=== PATIENT | male | born 1985 | race Caucasian/White ===

== ENCOUNTER 2023-02-07 07:41 | Outpatient (CLI) | payer OTHER, SELFPAY ==
--- NOTE | 2023-02-07 08:00 | CRLHL7_ITS ---
For Patients: As a result of the Century Cures Act, medical imaging exams and procedure reports are released immediately into your electronic medical record. You may view this report before your referring provider. If you have questions, please contact your health care provider. INDICATION: Anal rectal pain for 2 months. Palpable bulge. TECHNIQUE: CT of the abdomen and pelvis. 150 cc nonionic Isovue-370 administered. COMPARISON: None. FINDINGS: Clear included lung bases. Diffuse hepatic fatty infiltration. No intrahepatic mass. No biliary ductal dilatation. The spleen, pancreas, gallbladder, and both adrenal glands are normal. Decompressed stomach and duodenum but otherwise unremarkable. Normal-appearing kidneys without solid masses or obstruction. No definite renal stones. Normal caliber abdominal aorta and iliac arteries. Normal inferior vena cava. There is no evidence for bowel obstruction or ileus. There is no evidence for appendicitis or diverticulitis. No ascites or lymphadenopathy. Urinary bladder, prostate gland, and seminal vesicles are normal. The rectum, anus, and perineum are within normal limits. No abscess or fluid collection. No acute inflammatory process. No inguinal hernias. Normal included skeleton. IMPRESSION: 1. No acute abdominopelvic process identified. 2. No abscess. No perirectal fat stranding or fluid collection. 3. Hepatic fatty infiltration. Please note that all CT scans at this facility use dose modulation, iterative reconstruction, and/or weight-based dosing when appropriate to reduce radiation dose to as low as reasonably achievable. Dictated by Danny Blake MD @ 02/07/2023 10:08:39 AM (Electronically Signed)
== END 2023-02-07 07:42 | disposition home or self-care (01) ==
LOC: CT 07:42
PROVIDERS: PCP Family Medicine; Visit Provider Family Medicine
DX: K62.89 Other specified diseases of anus and rectum (principal); K76.0 Fatty (change of) liver, not elsewhere classified
CPT/HCPCS: 74177; Q9967

== ENCOUNTER 2024-03-04 09:17 | Outpatient (CLI) | payer BC, SELFPAY ==
--- OUTSIDE RECORDS SUMMARY | 2024-03-04 09:20 | XMS_ITS | Clinical Summary ---
Author Name Unknown Organization [employer] [facility] Address [place], [place] [address] Care Team Providers Care Psychology Intern Name Role Phone Pcp, No Primary Care Provider Unavailabl e Allergies Active Allergy Reactions Criticality Noted Date Comments Amoxicillin *Unknown - Childhood Rxn Unknown 06/10/2012 Cefaclor *Unknown - Childhood Rxn Unknown 06/10/2012 Penicillins *Unknown - Childhood Rxn Unknown 06/10/2012 Medications Medication Sig Dispensed Refills Start Date End Date Status gabapentin (NEURONTIN) 300 mg capsule 1-2 tablets qhs. 30 capsule 0 12/31/2012 Active Active Problems Problem Noted Date Diagnosed Date Numbness and tingling in right hand 12/31/2012 Tear of lateral cartilage or meniscus of knee, c urrent 06/10/2012 Family History Medical History Relation Name Comments Hypertension Father Cancer Mother Diabetes Mother Hypertension Mother Relation Name Status Comments Father Mother Social History Tobacco Use Types Packs/Day Years Used Date Smoking Tobacco: Never Alcohol Use Standard Drinks/Week Comments Yes 0 (1 standard drink = 0.6 oz pur e alcohol) Sex and Gender Information Value Date Recorded Sex Assigned at Not on file Gender Identity Not on file Sexual Orientation Not on file Obstetrics History Plan of Treatment Health Maintenance Due Date Last Done Comments Tdap 1997 Depression screening for age 12+ 1998 HIV for age 15-65 2001 BMI (ht and wt on same day) for age 18+ 02/07/2004 Hepatitis C screening for ag e 18-79 02/07/2004 Tetanus booster 2006 Lipids for age 35-44 2021 COVID-19 vaccine series (2022- season) 2023 Influenza for age 9-49 06/15/2024 Pneumococcal series for age 6-64 Aged Out No longer eligible based on patient's age to complete this topic Care Teams Psychology Intern Relationship Specialty Start Date End Date Pcp, No . PCP - General 06/06/12
--- OUTSIDE RECORDS SUMMARY | 2024-03-04 09:20 | XMS_ITS | Clinical Summary ---
Author Name Unknown Organization [facility] Address [address] [place] [address]. [place] [address] Care Team Providers Care Peanut Shaker Name Role Phone Hector Newman MD Primary Care Provider + Allergies Active Allergy Reactions Criticality Noted Date Comments Amoxicillin 09/15/2015 Cefaclor 09/15/2015 Penicillins 09/15/2015 Medications Medication Sig Dispensed Refills Start Date End Date Status lisinopril (PRINIVIL,ZESTRIL) 40 MG tabletIndications:Rio ign essential hypertension Take 1 tablet (40 mg) by mouth daily 90 tablet 1 05/02/2016 Active albuterol (PROAIR HFA, PROVENTIL HFA, VENTOLIN HFA) 108 (90 BASE) MCG/ACT inhalerIndications:Ac yamel bronchitis, unspecified organism Inhale 2 puffs into the lungs every 6 hours as needed for shortness of breath / dyspnea or wheezing 1 Inhaler 1 07/17/2016 Active ciprofloxacin (CIPRO) 500 MG tablet Take 500 mg by mouth 2 times daily Active oxyCODONE (ROXICODONE) 5 MG tabletIndications:Sergio fistula Take 1 tablet (5 mg) by mouth every 4 hours as needed for moderate to severe pain 6 tablet 02/10/2023 Active Active Problems Problem Noted Date Diagnosed Date Elevated fasting glucose 09/29/2015 Hypertriglyceridemia 09/29/2015 Benign essential hypertension 09/29/2015 CARDIOVASCULAR SCREENING; LDL GOAL LESS THAN 130 09/27/2015 Morbid obesity 09/15/2015 Episodic tension-type headache, not intractable 09/15/2015 Immunizations Name Administration Dates Next Due Influenza Vaccine >6 months,quad, PF 07/15/2015 TDAP (Adacel,Boostrix) 07/15/2013 Family History Medical History Relation Comments Coronary Artery Disease Father s/p cabg Hypertension Father Substance Abuse Father EtOH Diabetes Maternal Uncle Coronary Artery Disease Mother IN Diabetes Mother Hypertension Mother Lung Cancer Mother Relation Status Comments Father Maternal Uncle Mother Social History Tobacco Use Types Packs/Day Years Used Date Smoking Tobacco: Never Smokeless Tobacco: Never Alcohol Use Standard Drinks/Week Comments Yes 0 (1 standard drink = 0.6 oz pur e alcohol) 4-5/w Adolescent Education Answer Date Record ed Getting School Help Needed Not on file 07/06 Sex and Gender Information Value Date Recorded Sex Assigned at Not on file Gender Identity Not on file Sexual Orientation Not on file Last Filed Vital Signs Vital Sign Reading Time Taken Comments Blood Pressure 117/70 02/10/2023 9:30 AM CDT Pulse 82 02/10/2023 9:30 AM CDT Temperature 36.2 ??C (97.1 ??F) 02/10/2023 9:20 AM CD T Respiratory Rate 14 02/10/2023 9:30 AM CDT Oxygen Saturation 95% 02/10/2023 9:30 AM CDT Inhaled Oxygen Concentration - - Weight 144.2 kg (317 lb 14.4 oz) 02/10/2023 7:05 AM CDT Height 175.3 cm (5' 9) 02/10/2023 7:05 AM CDT Body Mass Index 46.95 02/10/2023 7:05 AM CDT Plan of Treatment Health Maintenance Due Date Last Done Comments ADVANCE CARE PLANNING 1986 ANNUAL REVIEW OF HM ORDERS 1986 HIV SCREENING 2001 HEPATITIS C SCREENING 02/07/2004 HEPATITIS B IMMUNIZATION (1 of 3 - 19+ 3-dose series) 2005 LIPID 09/27/2016 09/27/2015 YEARLY PREVENTIVE VISIT 09/27/2016 09/27/2015 GLUCOSE 09/27/2018 09/27/2015 COVID-19 Vaccine ( season) 2023 08/28/2021, 02/05/2021, 01/13/2021 DTAP/TDAP/TD IMMUNIZATION (7 - Td or Tdap) 07/15/2023 07/15/2013, 02/25/1998, 02/12/1991, Additional history exists PHQ-2 (once per calendar year) 2023 09/27/2015, 09/15/2015 INFLUENZA VACCINE (Season Ended) 2024 08/23/2022, 08/07/2021, 08/10/2019, Additional history exists IPV IMMUNIZATION Completed 02/12/1991, 10/1987, 1986, Additional history exists HPV IMMUNIZATION Aged Out No longer e ligible based on patient's age to complete this topic MENINGITIS IMMUNIZATION Aged Out No l onger eligible based on patient's age to complete this topic Pneumococcal Vaccine: Pediatrics (0 to 5 Years) and At-Risk Patients (6 to 64 Years) Aged Out No longer eligible based on patient's age to complete this topic RSV MONOCLONAL ANTIBODY Aged Out No l onger eligible based on patient's age to complete this topic Procedures Procedure Name Priority Date/Time Associated Diagnosis Comments COMPREHENSIVE METABOLIC PANEL Routine 09/27/2015 7:24 AM EMBROIDERY SUPERVISOR Routine general medical examination at a [facility] LIPID REFLEX TO DIRECT LDL PANEL Routine 09/27/2015 7:24 AM EMBROIDERY SUPERVISOR Routine general medical examination at a [facility] from Last 3 Months or Most Recently Relevant to Health Maintenance Results * (ABNORMAL) LIPID REFLEX TO DIRECT LDL PANEL (09/27/2015 7:24 AM EMBROIDERY SUPERVISOR) Cholesterol 210(H) <200 mg/dL [facility] Comment:Desirable: <200 mg/d l Triglycerides 313(H) <150 mg/dL [facility] Comment: Borderline high: ??150-199 mg/dl High: ? 200-499 mg/dl Very high: ? >499 mg/dl Fasting specimen HDL Cholesterol 37(L) >39 mg/dL [facility] LDL Cholesterol Calculated 110(H) <100 mg/dL [facility] Comment: Above desirable: ??100-129 mg/dl Borderline High: ??130-159 mg/dL High: ? 160-189 mg/dL Very high: ? >189 mg/dl Non HDL Cholesterol 173(H) <130 mg/dL [facility] Comment: Above Desirable: ??130-159 mg/dl Borderline high: ??160-189 mg/dl High: ? 190-219 mg/dl Very high: ? >219 mg/dl Blood specimen (specimen) 09/27/2015 7:24 AM EMBROIDERY SUPERVISOR 09/27/2015 7:25 AM EMBROIDERY SUPERVISOR Hector Newman MD LAB - BLOOD BARBRA MOJICA [facility] [address] [place] [address] * (ABNORMAL) Comprehensive metabolic panel (09/27/2015 7:24 AM EMBROIDERY SUPERVISOR) Sodium 137 133 - 144 mmol/L [facility] Potassium 4.2 3.4 - 5.3 mmol/L [facility] Chloride 103 94 - 109 mmol/L [facility] Carbon Dioxide 28 20 - 32 mmol/L [facility] Anion Gap 6 3 - 14 mmol/L [facility] Glucose 114(H) 70 - 99 mg/dL [facility] Urea Nitrogen 14 7 - 30 mg/dL [facility] Creatinine 1.10 0.66 - 1.25 mg/dL [facility] GFR Estimate 79 >60 mL/min/1. 7m2 [facility] Comment:Non GFR Calc GFR Estimate If Black >90 GFR Calc >60 mL/min/1. 7m2 [facility] Calcium 9.1 8.5 - 10.1 mg/dL [facility] Bilirubin Total 0.4 0.2 - 1.3 mg/dL [facility] Albumin 3.5 3.4 - 5.0 g/dL [facility] Protein Total 7.1 6.8 - 8.8 g/dL [facility] Alkaline Phosphatase 50 40 - 150 U/L [facility] ALT 57 0 - 70 U/L [facility] AST 25 0 - 45 U/L [facility] Blood specimen (specimen) 09/27/2015 7:24 AM EMBROIDERY SUPERVISOR 09/27/2015 7:25 AM EMBROIDERY SUPERVISOR Hector Newman MD LAB - BLOOD BARBRA [place] [facility] [address] [place] [address] from Last 3 Months or Most Recently Relevant to Health Maintenance Care Teams Peanut Shaker Relationship Specialty Start Date End Date Hector Newman MD PCP - General Family Practice 05/02/16
--- OUTSIDE RECORDS SUMMARY | 2024-03-04 09:20 | XMS_ITS | Encounter Summary ---
Author Name Unknown Organization [facility] Address [facility] [place] [address] Care Team Providers Care Rn Examiner Name Role Phone Hector Newman MD Primary Care Provider + Hector Newman MD Unavailable [phone] Hector Newman MD Unavailable [phone] Encounter Details Date Type Department Care Team (Late st Contact Info) Description 01/26/2016 [facility] Medical Advice [facility] [id number] [place] [address], [address] [place] [address] Theresa Jackson, [facility] Social History Tobacco Use Types Packs/Day Years Used Date Smoking Tobacco: Never Smokeless Tobacco: Never Alcohol Use Standard Drinks/Week Comments Yes 0 (1 standard drink = 0.6 oz pur e alcohol) 4-5/w Sex and Gender Information Value Date Recorded Sex Assigned at Not on file Gender Identity Not on file Sexual Orientation Not on file documented as of this encounter Plan of Treatment Not on file documented as of this encounter Visit Diagnoses Not on filedocumented in this encounter Care Teams Rn Examiner Relationship Specialty Start Date End Date Hector Newman MD PCP - General Family Practice 05/02/16 [place] [id number] [address] [id number] PCP - Assigned PCP 08/20/15 12/17/18 [place] [id number] [address] [id number] Assigned PCP 08/20/15 07/19/19 documented as of this encounter
--- OUTSIDE RECORDS SUMMARY | 2024-03-04 09:20 | XMS_ITS | Referral Summary ---
Author Name Unknown Organization [facility] Address [address] [place] [address]. [place] [address] Care Team Providers Care Laserist Name Role Phone Hector Newman MD Primary [...] >6 months,quad, PF 07/15/2015 TDAP (Adacel,Boostrix) 07/15/2013 Social History Tobacco Use Types Packs/Day Years [...] 02/10/2023 7:05 AM CDT Plan of Treatment Not on file Procedures Procedure Name Priority Date/Time Associated Diagnosis Comments COMPREHENSIVE METABOLIC PANEL Routine 09/27/2015 7:24 AM TRACK GRINDER OPERATOR Routine general medical examination at a health care facility LIPID REFLEX TO DIRECT LDL PANEL Routine 09/27/2015 7:24 AM TRACK GRINDER OPERATOR Routine general medical examination at a health care facility from Last 3 Months or Most Recently Relevant to Health Maintenance Results * (ABNORMAL) LIPID REFLEX TO DIRECT LDL PANEL (09/27/2015 7:24 AM TRACK GRINDER OPERATOR) Cholesterol 210(H) <200 mg/dL [facility] Comment:Desirable: <200 mg/d l Triglycerides 313(H) <150 mg/dL [facility] Comment: Borderline high: ??150-199 mg/dl High: ? 200-499 mg/dl Very high: ? >499 mg/dl Fasting specimen HDL Cholesterol 37(L) >39 mg/dL [facility] LDL Cholesterol Calculated 110(H) <100 mg/dL [facility] Comment: Above desirable: ??100-129 mg/dl Borderline High: ??130-159 mg/dL High: ? 160-189 mg/dL Very high: ? >189 mg/dl Non HDL Cholesterol 173(H) <130 mg/dL [facility] Comment: Above Desirable: ??130-159 mg/dl Borderline high: ??160-189 mg/dl High: ? 190-219 mg/dl Very high: ? >219 mg/dl Blood specimen (specimen) 09/27/2015 7:24 AM TRACK GRINDER OPERATOR 09/27/2015 7:25 AM TRACK GRINDER OPERATOR Hector Newman MD LAB - BLOOD BARBRA [facility] [address] [place] [address] * (ABNORMAL) Comprehensive metabolic panel (09/27/2015 7:24 AM TRACK GRINDER OPERATOR) Sodium 137 133 - 144 mmol/L [facility] Potassium 4.2 3.4 - 5.3 mmol/L [facility] Chloride 103 94 - 109 mmol/L [facility] Carbon Dioxide 28 20 - 32 mmol/L [facility] Anion Gap 6 3 - 14 mmol/L [facility] Glucose 114(H) 70 - 99 mg/dL [facility] Urea Nitrogen 14 7 - 30 mg/dL [facility] Creatinine 1.10 0.66 - 1.25 mg/dL [facility] GFR Estimate 79 >60 mL/min/1. 7m2 [facility] Comment:Non GFR Calc GFR Estimate If Black >90 GFR Calc >60 mL/min/1. 7m2 [facility] Calcium 9.1 8.5 - 10.1 mg/dL [facility] Bilirubin Total 0.4 0.2 - 1.3 mg/dL [facility] Albumin 3.5 3.4 - 5.0 g/dL [facility] Protein Total 7.1 6.8 - 8.8 g/dL [facility] Alkaline Phosphatase 50 40 - 150 U/L [facility] ALT 57 0 - 70 U/L [facility] AST 25 0 - 45 U/L [facility] Blood specimen (specimen) 09/27/2015 7:24 AM TRACK GRINDER OPERATOR 09/27/2015 7:25 AM TRACK GRINDER OPERATOR Hector Newman MD LAB - BLOOD BARBRA MOJ[facility] Organization Address City/State/ZIP Co de Phone Number [facility] [address] [place] [address] from Last 3 Months or Most Recently Relevant to Health Maintenance Care Teams Laserist Relationship Specialty Start Date End Date Hector Newman MD PCP - General Family Practice 05/02/16
== END 2024-03-04 09:18 | disposition home or self-care (01) ==
PROVIDERS: PCP Physician Assistant Medical; Visit Provider Physician Assistant Medical
DX: Z00.00 Encounter for general adult medical examination without abnormal findings (principal); E78.5 Hyperlipidemia, unspecified; I10 Essential (primary) hypertension; E11.9 Type 2 diabetes mellitus without complications; E66.01 Morbid (severe) obesity due to excess calories; R73.03 Prediabetes
CPT/HCPCS: 80053; 80061; 84443

== ENCOUNTER 2024-05-19 08:00 | Outpatient (CLI) | payer BC, SELFPAY ==
--- OUTSIDE RECORDS SUMMARY | 2024-05-20 03:57 | XMS_ITS | Clinical Summary ---
Author Organization [facility] Address [address] [place] [address]. [place] [address] Care Team Providers Care Wastewater Plant Operator Name Role Phone Hector Newman MD Primary [...] Diabetes Maternal Uncle Coronary Artery Disease Mother [place] Diabetes Mother Hypertension Mother Lung Cancer Mother [...] calendar year) 2023 09/27/2015, 09/15/2015 INFLUENZA VACCINE (#1) 2024 2, 08/07/2021, 08/10/2019, Additional history exists IPV IMMUNIZATION [...] COMPREHENSIVE METABOLIC PANEL Routine 09/27/2015 7:24 AM RAILROAD SUPERVISOR OF ENGINES Routine general medical examination at a [facility] LIPID REFLEX TO DIRECT LDL PANEL Routine 09/27/2015 7:24 AM RAILROAD SUPERVISOR OF ENGINES Routine general medical examination at a [facility] from Last 3 Months or Most Recently Relevant to Health Maintenance Results * (ABNORMAL) LIPID REFLEX TO DIRECT LDL PANEL (09/27/2015 7:24 AM RAILROAD SUPERVISOR OF ENGINES) Cholesterol 210(H) <200 mg/dL [facility] Comment:Desirable: <200 mg/d l Triglycerides 313(H) <150 mg/dL [facility] Comment: Borderline high: ??150-199 mg/dl High: ? 200-499 mg/dl Very high: ? >499 mg/dl Fasting specimen HDL Cholesterol 37(L) >39 mg/dL [facility] LDL Cholesterol Calculated 110(H) <100 mg/dL [facility] Comment: Above desirable: ??100-129 mg/dl Borderline High: ??130-159 mg/dL High: ? 160-189 mg/dL Very high: ? >189 mg/dl Non HDL Cholesterol 173(H) <130 mg/dL [facility] Comment: Above Desirable: ??130-159 mg/dl Borderline high: ??160-189 mg/dl High: ? 190-219 mg/dl Very high: ? >219 mg/dl Blood specimen (specimen) 09/27/2015 7:24 AM RAILROAD SUPERVISOR OF ENGINES 09/27/2015 7:25 AM RAILROAD SUPERVISOR OF ENGINES Hector Newman MD LAB - BLOOD BARBRA MOJ[facility] [address] [place] [address] * (ABNORMAL) Comprehensive metabolic panel (09/27/2015 7:24 AM RAILROAD SUPERVISOR OF ENGINES) Sodium 137 133 - 144 mmol/L [facility] Potassium 4.2 3.4 - 5.3 mmol/L [facility] Chloride 103 94 - 109 mmol/L [facility] Carbon Dioxide 28 20 - 32 mmol/L [facility] Anion Gap 6 3 - 14 mmol/L [facility] Glucose 114(H) 70 - 99 mg/dL [facility] Urea Nitrogen 14 7 - 30 mg/dL [facility] Creatinine 1.10 0.66 - 1.25 mg/dL [facility] GFR Estimate 79 >60 mL/min/1. 7m2 [facility] Comment:Non GFR Calc GFR Estimate If Black >90 GFR Calc >60 mL/min/1. 7m2 [facility] Calcium 9.1 8.5 - 10.1 mg/dL [facility] Bilirubin Total 0.4 0.2 - 1.3 mg/dL [facility] Albumin 3.5 3.4 - 5.0 g/dL [facility] Protein Total 7.1 6.8 - 8.8 g/dL [facility] Alkaline Phosphatase 50 40 - 150 U/L [facility] ALT 57 0 - 70 U/L [facility] AST 25 0 - 45 U/L [facility] Blood specimen (specimen) 09/27/2015 7:24 AM RAILROAD SUPERVISOR OF ENGINES 09/27/2015 7:25 AM RAILROAD SUPERVISOR OF ENGINES Hector Newman MD LAB - BLOOD [facility]RA [facility] [address] [place] [address] from Last 3 Months or Most Recently Relevant to Health Maintenance Care Teams Wastewater Plant Operator Relationship Specialty Start Date End Date Hector Newman MD PCP - General Family Practice 05/02/16
--- OUTSIDE RECORDS SUMMARY | 2024-05-20 03:57 | XMS_ITS | Clinical Summary ---
Author Organization [employer] [facility] Address [place], [place] [address] Care Team Providers Care Installer Metal Flooring Name Role Phone Pcp, No Primary Care [...] age to complete this topic Care Teams Installer Metal Flooring Relationship Specialty Start Date End Date Pcp, No . PCP - General 06/06/12
--- OUTSIDE RECORDS SUMMARY | 2024-05-20 03:57 | XMS_ITS | Referral Summary ---
Author Organization [place] Address [address] [place] [address]. [place] [address] Care Team Providers Care Tinning Machine Set Up Operator Name Role Phone Hector Newman MD [...] COMPREHENSIVE METABOLIC PANEL Routine 09/27/2015 7:24 AM DIVERSIFIED CROPS I FARMWORKER Routine general medical examination at a health care facility LIPID REFLEX TO DIRECT LDL PANEL Routine 09/27/2015 7:24 AM DIVERSIFIED CROPS I FARMWORKER Routine general medical examination at a health care facility from Last 3 Months or Most Recently Relevant to Health Maintenance Results * (ABNORMAL) LIPID REFLEX TO DIRECT LDL PANEL (09/27/2015 7:24 AM DIVERSIFIED CROPS I FARMWORKER) Cholesterol 210(H) <200 mg/dL [facility] Comment:Desirable: <200 mg/d l Triglycerides 313(H) <150 mg/dL [facility] Comment: Borderline high: ??150-199 mg/dl High: ? 200-499 mg/dl Very high: ? >499 mg/dl Fasting specimen HDL Cholesterol 37(L) >39 mg/dL [facility] LDL Cholesterol Calculated 110(H) <100 mg/dL [facility] Comment: Above desirable: ??100-129 mg/dl Borderline High: ??130-159 mg/dL High: ? 160-189 mg/dL Very high: ? >189 mg/dl Non HDL Cholesterol 173(H) <130 mg/dL [facility] Comment: Above Desirable: ??130-159 mg/dl Borderline high: ??160-189 mg/dl High: ? 190-219 mg/dl Very high: ? >219 mg/dl Blood specimen (specimen) 09/27/2015 7:24 AM DIVERSIFIED CROPS I FARMWORKER 09/27/2015 7:25 AM DIVERSIFIED CROPS I FARMWORKER Hector Newman MD LAB - BLOOD BARBRA [place] [facility] [address] [place] [address] * (ABNORMAL) Comprehensive metabolic panel (09/27/2015 7:24 AM DIVERSIFIED CROPS I FARMWORKER) Sodium 137 133 - 144 mmol/L [facility] Potassium 4.2 3.4 - 5.3 mmol/L [facility] Chloride 103 94 - 109 mmol/L [facility] Carbon Dioxide 28 20 - 32 mmol/L [facility] Anion Gap 6 3 - 14 mmol/L [facility] Glucose 114(H) 70 - 99 mg/dL [facility] Urea Nitrogen 14 7 - 30 mg/dL [facility] Creatinine 1.10 0.66 - 1.25 mg/dL [facility] GFR Estimate 79 >60 mL/min/1. 7m2 [facility] Comment:Non GFR Calc GFR Estimate If Black >90 GFR Calc >60 mL/min/1. 7m2 [facility] Calcium 9.1 8.5 - 10.1 mg/dL [facility] Bilirubin Total 0.4 0.2 - 1.3 mg/dL [facility] Albumin 3.5 3.4 - 5.0 g/dL [facility] Protein Total 7.1 6.8 - 8.8 g/dL [facility] Alkaline Phosphatase 50 40 - 150 U/L [facility] ALT 57 0 - 70 U/L [facility] AST 25 0 - 45 U/L [facility] Blood specimen (specimen) 09/27/2015 7:24 AM DIVERSIFIED CROPS I FARMWORKER 09/27/2015 7:25 AM DIVERSIFIED CROPS I FARMWORKER Hector Newman MD LAB - BLOOD BARBRA [place] [facility] Organization Address City/State/ZIP Co de Phone Number [facility] [address] [place] [address] from Last 3 Months or Most Recently Relevant to Health Maintenance Care Teams Tinning Machine Set Up Operator Relationship Specialty Start Date End Date Hector Newman MD PCP - General Family Practice 05/02/16
--- OUTSIDE RECORDS SUMMARY | 2024-05-20 03:57 | XMS_ITS | Encounter Summary ---
Author Organization [place] Address [facility] [place] [address] Care Team Providers Care Creative Consultant Name Role Phone Hector Newman MD Primary Care Provider + Hector Newman MD Unavailable [phone] Hector Newman MD Unavailable [phone] Encounter Details Date Type Department Care Team (Late st Contact Info) Description 01/26/2016 [facility] Medical Advice [address], [address] [place] [address] Theresa Jackson, [facility] Social History Tobacco Use Types Packs/Day Years [...] on filedocumented in this encounter Care Teams Creative Consultant Relationship Specialty Start Date End Date Hector Newman MD PCP - General Family Practice 05/02/16 [place] [id number] [address] [id number] PCP - Assigned PCP 08/20/15 12/17/18 [place] [id number] [address] [id number] Assigned PCP 08/20/15 07/19/19 documented as of this encounter
== END 2024-05-19 08:01 | disposition home or self-care (01) ==
LOC: NFLDREF 05-20 03:55
PROVIDERS: PCP Physician Assistant Medical; Referring Provider Physician Assistant Medical; Visit Provider Physician Assistant Medical
DX: E11.9 Type 2 diabetes mellitus without complications (principal); I10 Essential (primary) hypertension; E78.2 Mixed hyperlipidemia
CPT/HCPCS: 80061; 84450; 84460

== ENCOUNTER 2024-11-24 08:12 | Outpatient (CLI) | payer BC, SELFPAY | END 2024-11-24 08:13 | disposition home or self-care (01) | LOC: NFLDREF 11-28 03:20 | PROVIDERS: PCP Physician Assistant Medical; Referring Provider Physician Assistant Medical; Visit Provider Physician Assistant Medical | DX: I10 Essential (primary) hypertension (principal); E11.9 Type 2 diabetes mellitus without complications; E66.01 Morbid (severe) obesity due to excess calories; Z68.42 Body mass index [BMI] 45.0-49.9, adult | CPT/HCPCS: 80048 ==

== ENCOUNTER 2025-08-12 08:13 | Outpatient (CLI) | payer BC, SELFPAY | END 2025-08-12 08:14 | disposition home or self-care (01) | LOC: NFLDREF 08-13 18:49 | PROVIDERS: PCP Physician Assistant Medical; Referring Provider Physician Assistant Medical; Visit Provider Physician Assistant Medical | DX: Z00.00 Encounter for general adult medical examination without abnormal findings (principal); E11.9 Type 2 diabetes mellitus without complications; I10 Essential (primary) hypertension; E78.2 Mixed hyperlipidemia; G47.33 Obstructive sleep apnea (adult) (pediatric); E66.01 Morbid (severe) obesity due to excess calories; Z68.39 Body mass index [BMI] 39.0-39.9, adult | CPT/HCPCS: 80053; 80061; 82043; 82570; 84443 ==